=== PATIENT | male | born 1975 | race Two or more races ===

== ENCOUNTER 2020-11-08 12:06 | Emergency (ER) | payer OTHER ==
[~2020-11-08] VITALS: Ht 185.4 cm; Wt 108.9 kg
[2020-11-08 14:39] VITALS: BP 177/95
[2020-11-08] MEDS ORDERED: BACITRACIN TOP OINT 1 UD PKG TOP ONE (15:30)
[2020-11-08] MEDS ORDERED: cefTRIAXone SOD 1,000 MG VL IM ONE (15:30)
[2020-11-08] MEDS ORDERED: HYDROcodone-ACET 5/325MG TAB PO ONE (15:30)
== END 2020-11-08 16:57 | disposition home or self-care (01) ==
LOC: ER 12:06
DX: S62.633B Displaced fracture of distal phalanx of left middle finger, initial encounter for open fracture (principal); I10 Essential (primary) hypertension; X58.XXXA Exposure to other specified factors, initial encounter; Y93.89 Activity, other specified; Y92.89 Other specified places as the place of occurrence of the external cause; Y99.8 Other external cause status
CPT/HCPCS: 73140; 96372; 99283; J0696